=== PATIENT | male | born 1980 | race Two or more races ===

== ENCOUNTER → 2020-04-20 | Outpatient (CLI) | payer OTHER | LOC: KOH-I 08:30 | DX: R10.84 Generalized abdominal pain (principal) | CPT/HCPCS: 74176 ==

== ENCOUNTER → 2020-05-21 | Outpatient (CLI) | payer OTHER | LOC: EXRD 05-12 09:00 | DX: R10.84 Generalized abdominal pain (principal); R93.2 Abnormal findings on diagnostic imaging of liver and biliary tract | CPT/HCPCS: 76705 ==